=== PATIENT | female | born 1935 | race Hispanic/Latino ===

== ENCOUNTER → 2018-09-10 | Day surgery (SDC) | payer MEDICARE ==
[~2018-09-10] MED LIST: ALENDRONATE SOD70 MG PO; ISOSORBIDE DINI20 MG PO; LEVOTHYROXINE50 MCG PO; LOSARTAN POTAS100 MG PO; METOPROLOL SUCC50 MG PO; MIDAZOLAM HCL 2 MG/2 ML VIAL ONE; OR PHACO EYE KIT ONE; PRAVASTATIN SOD40 MG PO; PREOP PHACO EYE KIT ONE
--- OUTSIDE RECORDS SUMMARY | 2018-09-10 08:40 | XMS REPORT | Clinical Summary ---
Author Author [facility] Organization [facility] Address Unknown Phone Unavailable Care Team Providers Care Family Program Specialist Name Role Phone PCP Unavailable Allergies No Known Allergies Medications End Date Status Medication Sig Dispensed Refills Start Date Active fluorouracil (EFUDEX) 5 % Apply to 40 g 2 topical creamIndications: affected area 8 Squamous cell carcinoma daily Use for in situ (SCCIS) of skin 3 weeks. 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 Office Visit Dermatology 08/27/2018 Edilia Jha MD Actinic cheilitis (Primary Dx); 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 Office Visit Dermatology 06/25/2018 Edilia Jha MD 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 Dx); Actinic cheilitis; Inflamed seborrheic keratosis 04/30/2018 Office Visit Dermatology 04/30/2018 Edilia Jha MD 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 Dx); Actinic cheilitis 02/26/2018 Office Visit Dermatology 02/26/2018 Edilia Jha MD 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); Inflamed seborrheic keratosis 01/15/2018 Office Visit Dermatology Edilia Norman MD 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); Lichenoid keratosis; Actinic cheilitis 12/04/2017 Office Visit Dermatology Clara Hernandez Interpretation 12/04/2017 Telephone Edilia Norman MD 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 Within the past 12 months, the food you bought Never true 06/25/2018 just didn't last and you didn't have money to get more. Sex Assigned at Date Recorded Not on file Industry Job Start Date Occupation Not on file Not on file Not on file Travel End Travel History Travel Start No recent travel history available. Last Filed Vital Signs Reading Time Taken Comments Vital Sign - - Blood Pressure - - Pulse - - Temperature - - Respiratory Rate - - Oxygen Saturation - - Inhaled Oxygen Concentration 85.3 kg (188 lb) 08/27/2018 9:15 AM CDT Weight 154.9 cm (5' 1") 08/27/2018 9:15 AM CDT Height 35.52 08/27/2018 9:15 AM CDT Body Mass Index Plan of Treatment Care Team Description Date Type Specialty site check 10/29/2018 Office Visit Dermatology Health Maintenance Due Date Last Done Comments IMM Pneumococcal Age 65 1998 and Up IMM Influenza Seasonal 12/24/2018Dec to May (>/=19 yrs) Results Not on fileafter 09/09/2017 Insurance Type Payer Benefit Subscriber ID Effective Phone Address Plan / Dates Group MEDICARE MEDICARE xxxxxxxxxxx 2015-P [id number] [place] [address] [facility] xxxxxxxxx 2017-P [phone] [phone] [place] [address] [facility] MEDICAID HMO JONES xxxxxxxxx 2017-P [phone] MEDICAID [id number] [place] [address] ([place]) [place] [address]
--- OUTSIDE RECORDS SUMMARY | 2018-09-10 08:40 | XMS REPORT ---
Author Author [facility] Address Unknown Phone Unavailable Care Team Providers Care [employer]ined [employer] Quality Inspector Name Role Phone Unavailable Unavailable Problems This patient has no known problems. Allergies, Adverse Reactions, Alerts This patient has no known allergies or adverse reactions. Medications This patient has no known medications. Encounters Start Date/Time End Date/Time Encounter Type Admission Type Attending [facility] Care Department Encounter ID 2018-10-29 00:00:00 2018-10-29 00:00:00 Outpatient [facility] [id number] 2018-08-27 09:11:26 2018-08-27 09:11:26 Outpatient [facility] [id number] 2018-08-02 00:00:00 2018-08-02 00:00:00 Outpatient [facility] [id number] 2018-06-25 08:51:03 2018-06-25 08:51:03 Outpatient [facility] [id number] 2018-04-30 08:39:07 2018-04-30 08:39:07 Outpatient [facility] [id number] 2018-02-26 08:51:15 2018-02-26 08:51:15 Outpatient [facility] [id number] 2018-01-15 09:04:05 2018-01-15 09:04:05 Outpatient [facility] [id number] 2017-12-04 08:46:28 2017-12-04 08:46:28 Outpatient [facility] [id number] 2017-11-06 09:58:53 2017-11-06 09:58:53 Outpatient [facility] [id number] 2017-09-25 09:28:43 2017-09-25 09:28:43 Outpatient [facility] [id number] 2017-09-04 09:54:59 2017-09-04 09:54:59 Outpatient [facility] [id number] 2017-08-14 10:19:53 2017-08-14 10:19:53 Outpatient [facility] [id number]
[2018-09-10 13:05] VITALS: BP 161/68
== END | disposition home or self-care (01) ==
LOC: OR 08:37
PROVIDERS: ATTEND Ophthalmology
DX: H25.12 Age-related nuclear cataract, left eye (principal); I10 Essential (primary) hypertension; I25.10 Atherosclerotic heart disease of native coronary artery without angina pectoris; I44.7 Left bundle-branch block, unspecified; E03.9 Hypothyroidism, unspecified; Z01.810 Encounter for preprocedural cardiovascular examination
CPT/HCPCS: 66984; 93005; J2250; V2632